=== PATIENT | male | born 1995 | race African-American/Black ===

== ENCOUNTER 2020-04-05 07:10 | Day surgery (SDC) | payer OTHER ==
[2020-04-05] MEDS ORDERED: PROPOFOL INJ 200 MG/20 ML VIAL IV ONE (07:19)
[2020-04-05 08:36] VITALS: BP 132/43
--- NOTE | 2020-04-05 12:29 | Operative Report ---
Operative Report DATE OF SURGERY: 04/05/20 Operative Report: The risks benefits and alternatives of the procedure explained to the patient in detail and informed consent is obtained.A GIF Olympus video scope was inserted into the patient's mouth and hypopharynx ,the esophagus is identified intubated and insufflated, the scope was then advanced through the esophagus stomach and duodenum, retroflexion maneuver is done ,the esophagus stomach and first and second portions of the duodenum examined PREOPERATIVE DIAGNOSIS: Dysphagia POSTOPERATIVE DIAGNOSIS: Esophageal rings and furrows suggestive of eosinophilic esophagitis, gastritis status post biopsy OPERATION: EGD with biopsy SURGEON: MITESH CARNES ANESTHESIA: LMAC TISSUE REMOVED OR ALTERED: As noted above. COMPLICATIONS: None. ESTIMATED BLOOD LOSS: None. INTRAOPERATIVE FINDINGS: As noted above. PROCEDURE: Patient tolerated the procedure well. No immediate postprocedure complications are noted. Patient is discharged in good condition. Discharge date 04/05/2020. Discharge diet: Regular. Discharge activity: Regular. 2 to 3-week follow-up to discuss findings. Patient is instructed to call the office or proceed to the emergency room should there be any further problems or questions. Wait on the pathology.
--- OUTSIDE RECORDS SUMMARY | 2020-04-07 09:25 | XMS REPORT ---
:1995 Author Organization [facility] [place] [facility] [place] [address] [place] [id number] Care Team Providers Name Role Phone Unavailable Unavailable Unavailable Allergies, Adverse Reactions, Alerts This patient has no known allergies or adverse reactions. Medications This patient has no known medications. Problems This patient has no known problems. Procedures This patient has no known procedures. Results Test Description Test Time Test Comments Text Results Atomic Results Result Comments SARS-CoV-2 RNA Resp Ql HARRIS+probe 2020-03-31 00:00:00 Test Item Value Reference Range Comments SARS-CoV-2 RNA Resp Ql HARRIS+probe Not detected [facility] Case ID: (test code = 73191-9) [id number] SARS-CoV-2, HARRIS\S\2020-03-30 17:35:00 Test Item Value Reference Range Comments SARS-CoV-2, HARRIS (test code = 94418-6) Not Detected Not Detect ed SARS-CoV-2 RNA Resp Ql HARRIS+[id number] 00:00:00 Test Item Value Reference Range Comments SARS-CoV-2 RNA Resp Ql Not detected [facility] Case HARRIS+probe (test code = ID: [id number]) SARS-CoV-2 RNA Resp Ql HARRIS+[id number] 00:00:00 Test Item Value Reference Range Comments SARS-CoV-2 RNA Resp Ql Not detected [facility] Case HARRIS+probe (test code = ID: [id number]) Social History This patient has no known social history. Vital Signs This patient has no known vital signs.
== END 2020-04-05 08:42 | disposition home or self-care (01) ==
LOC: OROUT 07:10
PROVIDERS: ATTEND Internal Medicine Gastroenterology
DX: K29.50 Unspecified chronic gastritis without bleeding (principal); K20.90 Esophagitis, unspecified without bleeding; K22.2 Esophageal obstruction; Z79.899 Other long term (current) drug therapy; Z87.19 Personal history of other diseases of the digestive system; Z98.890 Other specified postprocedural states
CPT/HCPCS: 43239; 88342 ×2; 88305 ×2; 88312 ×2; 00731; J2704; 731